=== PATIENT | female | born 1995 | race Asian ===

== ENCOUNTER 2017-03-31 20:04 | Emergency (ER) | payer OTHER ==
[~2017-03-31] VITALS: Ht 160 cm; Wt 56.7 kg
[2017-03-31] MEDS ORDERED: DEPO-PROVE150 MG/1 M IM (22:09)
== END 2017-03-31 23:47 | disposition home or self-care (01) ==
LOC: ED 20:04
DX: F07.81 Postconcussional syndrome (principal); Z79.899 Other long term (current) drug therapy; W01.198A Fall on same level from slipping, tripping and stumbling with subsequent striking against other object, initial encounter; Y93.68 Activity, volleyball (beach) (court)
CPT/HCPCS: 99282